=== PATIENT | male | born 1990 | race African-American/Black ===

== ENCOUNTER 2021-08-19 12:32 | Emergency (ER) | payer MEDICAID, SELFPAY ==
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
[2021-08-19 12:38] VITALS: BP 158/88; PULSE 100; RESP 18; TEMP 36.6; O2SAT 98; BMI 40.6
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
== END 2021-08-19 15:52 | disposition home or self-care (01) ==
PROVIDERS: Emergency Provider Internal Medicine
DX: S13.4XXA Sprain of ligaments of cervical spine, initial encounter (principal); M54.6 Pain in thoracic spine; M54.2 Cervicalgia; V43.62XA Car passenger injured in collision with other type car in traffic accident, initial encounter; Y93.9 Activity, unspecified; Y92.410 Unspecified street and highway as the place of occurrence of the external cause; Y99.9 Unspecified external cause status
CPT/HCPCS: 72040; 72072; 99283

== ENCOUNTER 2021-09-10 09:32 | Emergency (ER) | payer MEDICAID, SELFPAY ==
[2021-09-10 09:46] VITALS: BP 182/79; PULSE 93; RESP 18; TEMP 36.7; O2SAT 99; BMI 40.6
--- NOTE | 2021-09-10 09:55 | ED_ITS ---
HPI - General Adult General Chief complaint: General Medical Stated complaint: med refill Time Seen by Provider: 09/10/21 09:55 Source: patient Mode of arrival: ambulatory Limitations: no limitations History of Present Illness HPI narrative: 31-year-old male presents to the ER for medication refill. He has a history of anxiety and depression and just moved here from at [facility]. He called a provider group in [place] and is on a wait list for an intake. He took his last doses last night. He reports he has been on this regimen for about 1 year. He called his provider an adult [facility] and all of the patient's have been dispersed other providers as the group as closed. He last got his gabapentin filled August 09 according to the prescription monitoring program. This timeline adheres to his history. MD complaint: Medication refill Relieving factors: none Exacerbating factors: none Associated symptoms: denies other symptoms Treatments prior to arrival: none Related Data Previous Rx's Medication Instructions Recorded cyclobenzaprine 10 mg tablet 10 mg PO BID PRN #14 tab 08/19/21 buspirone 15 mg tablet 15 mg PO BID #30 tab 09/10/21 duloxetine 60 mg capsule,delayed 60 mg PO DAILY #10 cap 09/10/21 release (Cymbalta) gabapentin 300 mg capsule 300 mg PO TID #30 cap 09/10/21 (Neurontin) Allergies Allergy/AdvReac Type Severity Reaction Status Date / Time No Known Allergies Allergy Verified 08/19/21 14:01 Review of Systems Review of Systems: Constitutional: No Fever, No Chills Cardiovascular: No Chest Pain, No SOB Gastrointestinal: No Nausea, No Vomiting, No abdominal Pain Musculoskeletal: No joint pain, No Myalgias Skin: No Skin Lesions, No rash Neuro: No Weakness, No Numbness, No Dizziness, No Headache Psych: + Anxiety/Panic, + Depression [facility] Social History Social History Advance Directives: No Advance Directives Information Provided: No Physical Exam ED Vital Signs: Vital Signs - 24 hr 09/10/21 09:46 Temperature 98.0 F Pulse Rate 93 Respiratory Rate 18 Blood Pressure 182/79 H Pulse Oximetry 99 BMI result Body Mass Index 40.6 Appearance: Alert. Oriented X3. No acute distress. HEENT: normal inspection CVS: Normal heart rate and rhythm. Pulses normal. Respiratory: No respiratory distress. Lungs are clear throughout Skin: Skin warm and dry. Normal skin color. Normal skin turgor. No rashes. Extremities: Normal inspection x4, normal range of motion. Neuro/psych: Oriented X 3. Grossly normal, nonfocal, makes eye contact and is conversant. Course Course Course Narrative: 31-year-old male with history of anxiety and depression on Cymbalta, Buspar, & Neurontin presents to the ER for medication refill he is in the works of getting a provider in [place] after moving to the area. His prescription monitoring program has been reviewed and is consistent with his history. Will prescribe his current regimen for 10 day course so he can establish providers in the area. Patient appreciative of care, stable for discharge home. Discharge Plan Discharge Clinical Impression: Anxiety, Depression Patient Disposition: Home, Self-Care Instructions: Depression (DC), Anxiety (ED) Additional Instructions: Refills of her medications have been sent to your pharmacy for 10 day supply. Follow-up with your provider in [place] on Sunday, recommend calling them back to get a timeline on when he can be seen & get medications refilled. Prescriptions: New duloxetine [Cymbalta] 60 mg capsule,delayed release(DR/EC) 60 mg PO DAILY Qty: 10 0RF buspirone 15 mg tablet 15 mg PO BID Qty: 30 0RF gabapentin [Neurontin] 300 mg capsule 300 mg PO TID Qty: 30 0RF No Action cyclobenzaprine 10 mg tablet 10 mg PO BID PRN (Reason: muscle spasm) Qty: 14 0RF Interventions: ED Discharge Assessment Last Done: 09/10/21 10:12 Discharge Date/Time: 09/10/21 10:12
== END 2021-09-10 10:12 | disposition home or self-care (01) ==
PROVIDERS: Emergency Provider Emergency Medicine Emergency Medical Services
DX: F41.1 Generalized anxiety disorder (principal); F43.0 Acute stress reaction; F33.1 Major depressive disorder, recurrent, moderate; Z76.0 Encounter for issue of repeat prescription; Z79.899 Other long term (current) drug therapy
CPT/HCPCS: 99283

== ENCOUNTER 2021-09-22 18:30 | Emergency (ER) | payer MEDICAID, SELFPAY ==
[2021-09-22 18:40] VITALS: BP 147/86; PULSE 100; RESP 18; TEMP 36.9; O2SAT 96; BMI 40.8
== END 2021-09-22 23:15 | disposition left against medical advice (07) ==
LOC: HO.ED 23:14
PROVIDERS: Emergency Provider Emergency Medicine
DX: Z76.0 Encounter for issue of repeat prescription (principal)
CPT/HCPCS: 99281

== ENCOUNTER 2021-09-25 11:51 | Emergency (ER) | payer MEDICAID, SELFPAY ==
[2021-09-25 11:54] VITALS: BP 125/75; PULSE 108; RESP 18; TEMP 36.7; O2SAT 97; BMI 42.6
--- NOTE | 2021-09-25 13:07 | ED_ITS ---
HPI - General Adult General Chief complaint: General Medical Stated complaint: Medication refill Time Seen by Provider: 09/25/21 13:07 Source: patient Mode of arrival: ambulatory Limitations: no limitations History of Present Illness HPI narrative: This is a 31-year-old male presenting requesting medication refill. According to patient he was seeing a psychiatrist who is no longer at the office, he is unable to see this provider. He tells me he has been trying to get in with psychiatry however has had no locked. He tells me that he is on multiple wait list to see Psychiatry however he has not had an appointment. Patient reports that he ran out of his gabapentin, Cymbalta, buspirone. Patient denies visual, auditory and tactile hallucinations. Patient also denies suicidal and homicidal ideation. Related Data Previous Rx's Medication Instructions Recorded cyclobenzaprine 10 mg tablet 10 mg PO BID PRN #14 tab 08/19/21 buspirone 15 mg tablet 15 mg PO BID #30 tab 09/10/21 duloxetine 60 mg capsule,delayed 60 mg PO DAILY #10 cap 09/10/21 release (Cymbalta) gabapentin 300 mg capsule 300 mg PO TID #30 cap 09/10/21 (Neurontin) buspirone 15 mg tablet 15 mg PO BID 15 Days #30 tab 09/25/21 duloxetine 60 mg capsule,delayed 60 mg PO DAILY 10 Days #10 cap 09/25/21 release (Cymbalta) gabapentin 300 mg capsule 300 mg PO TID 10 Days #30 cap 09/25/21 Allergies Allergy/AdvReac Type Severity Reaction Status Date / Time No Known Allergies Allergy Verified 09/25/21 11:54 Review of Systems Review of Systems: Constitutional : No Weight loss, No Fever, No Chills, No Fatigue, No Malaise ENT/Mouth : No sore throat, No Rhinorrhea Eyes: No Eye Pain, No Swelling, No Redness Cardiovascular : No Chest Pain, No SOB, No Dyspnea on Exertion, No Orthopnea, No Edema, No Palpitations Respiratory : No Cough, No Sputum, No Wheezing Gastrointestinal : No Nausea, No Vomiting, No Diarrhea, No Constipation, No abdominal Pain, No Hematochezia, No Melena Genitourinary : No Dysuria, No Urinary Frequency, No Hematuria, Musculoskeletal : No joint pain, No Myalgias, No Joint Swelling Skin : No Skin Lesions, No rash Neuro : No Weakness, No Numbness, No Dizziness, No Headache Psych : No Anxiety/Panic, No Depression All other systems reviewed and are negative Yes all other systems are reviewed and are negative [facility] Past Medical History Attestation statement: The following information was validated with the patient. Source: old records reviewed and nursing notes reviewed Social History Social History Advance Directives: No Advance Directives Information Provided: No Physical Exam ED Vital Signs: Vital Signs - 24 hr 09/25/21 11:54 Temperature 98.1 F Pulse Rate 108 H Respiratory Rate 18 Blood Pressure 125/75 Pulse Oximetry 97 BMI result Body Mass Index 42.6 Vital signs stable Appearance: Alert.? Oriented X3.? No acute distress.? Head: Normocephalic, atraumatic, no step-offs or deformities Eyes: Pupils equal, round and reactive to light.? ENT: Pharynx normal.? Neck: Normal inspection.? Neck supple.? CVS: Normal heart rate and rhythm.? Pulses normal.? Respiratory: No respiratory distress.? Breath sounds normal.? Abdomen: Soft and nontender.? Skin: Skin warm and dry.? Normal skin color.? Normal skin turgor.? Extremities: No lower extremity edema.? No calf ttp. 5/5 strength to bilateral upper and lower extremities Back: No midline tenderness, no C-spine tenderness, full range of motion, no CVA tenderness bilaterally Neuro: Oriented X 3.? No motor deficit.? No sensory deficit. CN 2-12 intact Course Reevaluation(s) Reevaluation #1: Educated patient on plan. Gave him a list of outpatient providers. Advised him to return with new or worsening symptoms. Comfortable discharge home. Time: 13:12 Medical Decision Making MDM Narrative Medical decision making narrative: 1310 31-year-old male presenting requesting a refill on his gabapentin, Cymbalta, buspirone since his primary prescriber is no longer able to fill his scripts, he tells me the place he went to is no longer open therefore he does not have a prescriber. Denies any psychiatric symptoms at this time. Denies medical complaints at this time. Upon chart review it is noted that patient was seen here in the emergency department for the same thing, he last filled these prescriptions on 09/10/2021. He was given a 10 day supply for Cymbalta and gabapentin. And a 15 day supply for buspirone. Physical examination benign. Plan at this time is to give patient a prescription for these medications for a short period of time. I gave him a list of PCPs in the area as well as Psychiatry places where he reach out to. Medical Records Medical records reviewed: Yes I reviewed the patient's medical records. Lab Data Lab results reviewed: Yes I reviewed the patient's lab results. Critical Care Time Critical Care Time Critical Care Time: No Discharge Plan Discharge Clinical Impression: Medication refill Patient Disposition: Home, Self-Care Instructions: Medicine Refill (ED) Additional Instructions: Take your medications as prescribed. If you were prescribed antibiotics today, it is important that you take your medication to their entirety, do not skip any doses, do not finish them early. Follow-up with your primary care provider this week. Return to the emergency department with new or worsening symptoms. Such as fevers, chills, chest pain, shortness of breath, nausea, vomiting, dizziness, headache, vision changes, lethargy In case of emergency call 911 Follow-up with the list of providers I gave you. You should find a PCP and a ps ychiatrist. Prescriptions: New buspirone 15 mg tablet 15 mg PO BID 15 Days Qty: 30 0RF duloxetine [Cymbalta] 60 mg capsule,delayed release(DR/EC) 60 mg PO DAILY 10 Days Qty: 10 0RF gabapentin 300 mg capsule 300 mg PO TID 10 Days Qty: 30 0RF No Action cyclobenzaprine 10 mg tablet 10 mg PO BID PRN (Reason: muscle spasm) Qty: 14 0RF duloxetine [Cymbalta] 60 mg capsule,delayed release(DR/EC) 60 mg PO DAILY Qty: 10 0RF buspirone 15 mg tablet 15 mg PO BID Qty: 30 0RF gabapentin [Neurontin] 300 mg capsule 300 mg PO TID Qty: 30 0RF Referrals: Physician,None [Primary Care Provider] - 2 days
== END 2021-09-25 13:28 | disposition home or self-care (01) ==
PROVIDERS: Emergency Provider Student in an Organized Health Care Education/Training Program
DX: Z76.0 Encounter for issue of repeat prescription (principal)
CPT/HCPCS: 99282; 99283

== ENCOUNTER 2021-10-04 13:12 | Emergency (ER) | payer MEDICAID, SELFPAY ==
[2021-10-04 13:37] VITALS: BP 166/98; PULSE 100; RESP 18; TEMP 36.9; O2SAT 98; BMI 42.7
== END 2021-10-04 16:16 | disposition left against medical advice (07) ==
PROVIDERS: Emergency Provider Emergency Medicine
DX: S69.92XA Unspecified injury of left wrist, hand and finger(s), initial encounter (principal); X58.XXXA Exposure to other specified factors, initial encounter; Y93.9 Activity, unspecified; Y92.9 Unspecified place or not applicable; Y99.9 Unspecified external cause status
CPT/HCPCS: 99281

== ENCOUNTER 2021-10-19 02:20 | Emergency (ER) | payer MEDICAID, SELFPAY ==
[2021-10-19 04:59] LABS: Estimated Glomerular Filt Rate > 60
[2021-10-19 05:18] LABS: Anion Gap 19 (12-20); Blood Urea Nitrogen 6 mg/dL (9-16); Calcium 8.5 mg/dL (8.4-10.2); Carbon Dioxide 17 mmol/L (22-29); Chloride 105 mmol/L (96-108); Glucose Random 97 mg/dL (60-115); Potassium 4.2 mmol/L (3.3-5.1); Sodium 137 mmol/L (135-145)
[2021-10-19 05:28] LABS: Appearance Urine CLEAR; Color Urine YELLOW; Glucose Urine UA NEG (NEG); Leukocyte Esterase Urine NEG (NEG); Nitrite Urine NEG (NEG); Specific Gravity - Urine >= 1.030 (1.005-1.025); Urine Blood NEG (NEG); Urine Ketones NEG (NEG); Urine Protein 1+ MG/DL (NEG-TRACE)
[2021-10-19 05:45] LABS: Fentanyl, urine POSITIVE (Not Detect)
[2021-10-19 05:48] LABS: Amphetamine Screen Urine Not Detected (Not Detect); Barbiturates, Urine Not Detected (Not Detect); Cannabinoid Screen Urine POSITIVE (Not Detect); Cocaine Screen Urine POSITIVE (Not Detect); Opiate Screen Urine POSITIVE (Not Detect); Phencyclidine Screen Urine Not Detected (Not Detect)
[2021-10-19 05:58] LABS: Bacteria Urine 1+ /LPF; Mucus Urine 2+ /LPF; Squamous Epithelial Cell Urine 1+ /LPF
[2021-10-19] MEDS: busPIRone HCl 10 MG TABLET 15 MG PO (08:16)
[2021-10-19] MEDS: Nicotine 21 MG PATCH.TD24 TRANSDERMA (08:17)
[2021-10-19] MEDS: Gabapentin 300 MG CAPSULE PO (08:17)
[2021-10-20 10:48] LABS: Benzodiazepines Screen Urine NOT DETECTED (Not Detect)
== END 2021-10-19 09:31 | disposition left against medical advice (07) ==
PROVIDERS: Emergency Provider Emergency Medicine
DX: T40.1X1A Poisoning by heroin, accidental (unintentional), initial encounter (principal); R53.83 Other fatigue; Y92.9 Unspecified place or not applicable; F41.9 Anxiety disorder, unspecified; F32.A Depression, unspecified; F17.200 Nicotine dependence, unspecified, uncomplicated; Z79.899 Other long term (current) drug therapy
CPT/HCPCS: 36415; 80048; 80307; 81001; 99283